=== PATIENT | male | born 1930 | race Native Hawaiian/Other Pacific Islander ===

== ENCOUNTER 2017-03-16 12:03 | Outpatient (CLI) | payer OTHER, BC ==
[~2017-03-16 12:03] MED LIST: CIPRO500 MG OR; MULTIVITAMIN OR
[2017-03-16 12:25] LABS: PLATELET COUNT 240 K/uL (142-355)
[2017-03-16 12:52] LABS: POTASSIUM 4.2 mmol/L (3.6-5.2); SODIUM 135 mmol/L (136-145)
== END 2017-03-16 19:15 | disposition home or self-care (01) ==
LOC: LABW 12:03
PROVIDERS: Internal Medicine
DX: Z00.00 Encounter for general adult medical examination without abnormal findings (principal); Z79.899 Other long term (current) drug therapy; Z13.220 Encounter for screening for lipoid disorders; Z12.5 Encounter for screening for malignant neoplasm of prostate; Z51.81 Encounter for therapeutic drug level monitoring
CPT/HCPCS: 36415; 80053; 80061; 81000; 84153; 84439; 84443; 85027

== ENCOUNTER 2017-03-18 09:10 | Outpatient (CLI) | payer OTHER, BC | END 2017-03-18 10:10 | disposition home or self-care (01) | LOC: US 09:10 | DX: Z13.6 Encounter for screening for cardiovascular disorders (principal) ==

== ENCOUNTER 2017-04-19 10:21 | Outpatient (CLI) | payer OTHER, BC ==
[2017-04-19 10:39] LABS: PLATELET COUNT 263 K/uL (142-355)
== END 2017-04-19 11:25 | disposition home or self-care (01) ==
LOC: LABW 10:21
PROVIDERS: Internal Medicine
DX: D72.828 Other elevated white blood cell count (principal); R31.9 Hematuria, unspecified
CPT/HCPCS: 36415; 81000; 85027